=== PATIENT | male | born 1970 | race American Indian/Alaskan Native ===

== ENCOUNTER 2018-02-05 19:00 | Emergency (ER) | payer MEDICARE, OTHER ==
[2018-02-05] MEDS ORDERED: Mupirocin Oint 22 GM Tube TOP ONE (19:01)
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
[2018-02-05 21:23] VITALS: BP 107/46
[2018-02-05] MEDS: Mupirocin Oint 22 GM Tube ONE (21:24)
== END 2018-02-05 21:26 | disposition home or self-care (01) ==
LOC: DL.ED 19:00
DX: S61.203A Unspecified open wound of left middle finger without damage to nail, initial encounter (principal); S80.211A Abrasion, right knee, initial encounter; N19 Unspecified kidney failure; E11.622 Type 2 diabetes mellitus with other skin ulcer; L98.499 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 sites with unspecified severity; L02.416 Cutaneous abscess of left lower limb; I10 Essential (primary) hypertension; E11.40 Type 2 diabetes mellitus with diabetic neuropathy, unspecified; Z91.048 Other nonmedicinal substance allergy status; Z88.8 Allergy status to other drugs, medicaments and biological substances; Z79.82 Long term (current) use of aspirin; Z79.899 Other long term (current) drug therapy; Z79.4 Long term (current) use of insulin; X58.XXXA Exposure to other specified factors, initial encounter
CPT/HCPCS: 36415; 73140; 80053; 82962; 83605; 85025; 87040; 99284; A9270; 87077; 87186

== ENCOUNTER 2018-02-25 22:13 | Emergency (ER) | payer MEDICARE, OTHER ==
[2018-02-25 22:39] VITALS: BP 109/32
[2018-02-25] MEDS ORDERED: Sodium Chloride 0.9% 10 ML Syringe FLUSH PRN (22:47)
[2018-02-25] MEDS ORDERED: Sodium Chloride 0.9% 1,000 ML IV ONE (22:47)
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
[2018-02-25 23:09] LABS: CHLORIDE,CL 93 mmol/L (101-111); SODIUM,NA 135 mmol/L (135-145)
[2018-02-25] MEDS ORDERED: Piperacillin/Tazobactam 3.375 GM in Sodium Chloride 0.9% 100 ML IV ONE (23:30)
[2018-02-25] MEDS ORDERED: Vancomycin 1.5 GM in Sodium Chloride 0.9% 500 ML IV ONE (23:53)
[2018-02-26] MEDS ORDERED: 50% Dextrose in Water 50 ML Syringe ONE (00:17)
[2018-02-26] MEDS ORDERED: 50% Dextrose in Water 50 ML Syringe IVPUSH ONE (00:18)
--- NOTE | 2018-02-26 12:26 | EKG ---
02/25/2018 - CHILANGO ALMENDAREZ - TIME: 11:09 p.m. After my reading, sinus rhythm at 97. [facility] /[id number]
== END 2018-02-26 00:38 ==
LOC: DL.ED 22:13
DX: A41.9 Sepsis, unspecified organism (principal); E11.622 Type 2 diabetes mellitus with other skin ulcer; L97.929 Non-pressure chronic ulcer of unspecified part of left lower leg with unspecified severity; I10 Essential (primary) hypertension; E11.40 Type 2 diabetes mellitus with diabetic neuropathy, unspecified; Z77.22 Contact with and (suspected) exposure to environmental tobacco smoke (acute) (chronic); Z88.8 Allergy status to other drugs, medicaments and biological substances; Z79.82 Long term (current) use of aspirin; Z79.899 Other long term (current) drug therapy
CPT/HCPCS: 36415; 71045; 80053; 83605; 83880; 85025; 87040; 87077; 87186; 93005; 93010; 96361; 96365; 96368; 99285; G0480; J2543; J3370; J7030; J7040; J7050; J7060

== ENCOUNTER 2018-03-25 14:33 | Emergency (ER) | payer MEDICARE, OTHER ==
[~2018-03-25 14:33] MED LIST: Sodium Chloride 0.9% 10 ML Syringe FLUSH PRN
[2018-03-25 14:40] VITALS: BP 159/62
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
[2018-03-25] MEDS ORDERED: Sodium Chloride 0.9% 1,000 ML IV ONE (14:56)
[2018-03-25] MEDS ORDERED: Levofloxacin/Dextrose 5%-Water 750 MG in Premix Bag 1 BAG IV ONE (14:58)
[2018-03-25] MEDS ORDERED: Norepinephrine 4 MG in Dextrose 5% in Water 246 ML IV SCH ×2 (15:00)
[2018-03-25 15:02] LABS: ANION GAP 16.7; CHLORIDE,CL 90 mmol/L (101-111); SODIUM,NA 132 mmol/L (135-145)
[2018-03-25] MEDS ORDERED: Vancomycin 1.5 GM in Sodium Chloride 0.9% 500 ML IV ONE (15:15)
[2018-03-25] MEDS ORDERED: fentaNYL 100 MCG/2 ML SDV IVPUSH ONE (15:43)
--- NOTE | 2018-03-25 15:59 | CR ---
CLINICAL HISTORY: 48-year-old male with chest pain. INTERPRETATION: Chronic bibasilar platelike atelectasis obese male who has made a poor inspiratory ef fort. No new signs of heart failure, lung mass, hilar lymphadenopathy or focal lobar pneumonia when compare d directly to 25 February 2018 exam. No pneumothorax or free subdiaphragmatic air. CONCLUSION: No acute new cardiopulmonary abnormality.
--- NOTE | 2018-03-27 07:23 | EKG ---
03/25/2018- CHILANGO ALMENDAREZ - EKG per my reading shows sinus tachycardia with LVH. [facility] /[id number]
== END 2018-03-25 16:02 ==
LOC: DL.ED 14:33
DX: A41.9 Sepsis, unspecified organism (principal); L08.9 Local infection of the skin and subcutaneous tissue, unspecified; R65.21 Severe sepsis with septic shock; I10 Essential (primary) hypertension; E11.40 Type 2 diabetes mellitus with diabetic neuropathy, unspecified; Z88.8 Allergy status to other drugs, medicaments and biological substances; Z79.82 Long term (current) use of aspirin; Z79.4 Long term (current) use of insulin; Z79.899 Other long term (current) drug therapy
CPT/HCPCS: 36415; 71045; 80053; 83605; 83880; 85025; 85651; 86140; 87040; 87070; 93005; 93010; 96365; 96374; 96375; 99285; G0480; J1956; J3010; J3370; J7030; J7040; J7050; J7060; 87077; 87186